=== PATIENT | female | born 1930 | race Caucasian/White ===

== ENCOUNTER → 2016-11-15 | Outpatient (CLI) | payer MEDICARE, OTHER ==
[~2016-11-15] MED LIST: ACET1TAB25 PO; ALLO300T74 PO; ASPI-914 PO; AZEL50GE2 TOP; CRAN400T4 PO; DICL112S2 PO; DIPH1TAB24 PO; GABA-218 PO; GUAI1TBM15 PO; HYDR-4180 PO; INSU100I14 SQ; INSU3INS3 SQ; ISOS60TA4 PO; LOSA100T44 PO; METF500T7 PO; METO-277 PO; MINO2.5T2 PO; NITR0.4T39 SL; NYST15PO3 TOP; PREN1TAB73 PO; [UNRECOGNIZED DRUG - CODE] PO
--- NOTE | 2016-11-15 16:31 | DI ---
Indication: ITS.REASON: PAIN IN LEFT LOWER LEG, VARICOSE VEINS WITH EDEMA PROCEDURE: US VENOUS DUPLEX, LOWER EXT LT: Encounter: Initial Comparison: None Technique: Color Doppler duplex and grayscale sonographic imaging of the left lower extremity was performed. Findings: There is no evidence for acute deep venous thrombosis in the left thigh. Specifically, serial graded compression was performed from the inguinal ligament to the popliteal bifurcation, on the left thigh, demonstrating appropriate compressibility of the deep venous system. In addition, color and pulsed Doppler demonstrate appropriate spontaneous flow, variation with respiration, and augmentation with calf compression. At the ankle, normal flow is identified in the posterior tibial veins; these vessels are also normal in caliber. Impression: No evidence of acute DVT in the left lower limb. .
== END ==
LOC: IMA 15:50
PROVIDERS: ATTEND Internal Medicine
DX: M79.662 Pain in left lower leg (principal); I83.892 Varicose veins of left lower extremity with other complications

== ENCOUNTER 2017-09-07 16:41 | Inpatient (IN) ==
[2017-09-07] MEDS ORDERED: NS 1,000 ML IV ONE (16:57)
--- NOTE | 2017-09-07 17:01 | Emergency Department Report ---
Chest Pain HPI - General Chief Complaint: Chest Pain Stated Complaint: CP and nausea post heart cath Time Seen by Provider: 09/07/17 16:45 Source: patient, RN notes reviewed, old records reviewed Mode of arrival: ambulatory Limitations: no limitations - History of Present Illness HPI narrative: 87yo woman presents to the ER for evaluation of chest pain/pressure. Pt is s/p heart cath yesterday; has had chest pressure/discomfort since the procedure. Today, pts nausea has gotten worse throughout the day. Because sx were not improving, pt presented to the ER for further evaluation. MD complaint: chest pain Occurred At: other Onset (ago): hour(s) Duration: constant Onset: during rest Pain location: substernal Severity: similar to previous episodes Quality: heaviness Pain radiation: none Relieving factors: nothing Exacerbating factors: exertion Context: recent surgery Associated symptoms: nausea Aspirin Today: contraindicated (Taking plavix) Nitro Today: 0.4 mg x 1, provided by ED Treatments prior to arrival chest pain: none - Related Data On Oral Contraceptives: No Home Medications Medication Instructions Recorded Confirmed Insulin Glargine,Hum.rec.anlog 40 unit SQ HS #0 06/08/15 09/07/17 [Lantus Solostar] Insulin Lispro [Humalog Kwikpen 10 unit SQ WB #0 06/08/15 09/07/17 U-100] Insulin Lispro [Humalog Kwikpen 12 unit SQ WL #0 syringe 06/08/15 09/07/17 U-100] Insulin Lispro [Humalog Kwikpen 15 unit SQ WS #0 syringe 06/08/15 09/07/17 U-100] Aspirin [Low Dose Aspirin EC] 81 mg PO DAILY #0 08/08/16 09/07/17 Nitroglycerin 0.4 mg SL Q5MIN PRN #0 08/08/16 09/07/17 Metformin HCl [Metformin HCl ER] 500 mg PO BID #0 08/19/16 09/07/17 Nystatin [Nyamyc] 1 applicatio TOP DAILY PRN #0 08/19/16 09/07/17 Furosemide [Lasix] 20 mg PO DAILY 09/06/17 09/07/17 Potassium Chloride [Klor-Con 10] 10 meq PO DAILY 09/06/17 09/07/17 APAP/Codeine 300/30 (#3) [Tylenol 1 tab PO Q6H PRN 09/07/17 09/07/17 with Codeine #3 (300/30)] Allopurinol [Zyloprim] 300 mg PO DAILY 09/07/17 09/07/17 Cranberry 1 tab PO BID 09/07/17 09/07/17 Diphenoxylate HCl/Atropine 1 tab PO Q6H PRN 09/07/17 09/07/17 [Lomotil 2.5-0.025 mg Tablet] Gabapentin [Neurontin] 200 mg PO HS 09/07/17 09/07/17 Guaifenesin/Dextromethorphan 1 tab PO BID 09/07/17 09/07/17 [Mucinex Dm ER 1,200-60 mg Tab] Isosorbide Mononitrate ER [Imdur] 30 mg PO BID 09/07/17 09/07/17 Losartan [Cozaar] 50 mg PO BID 09/07/17 09/07/17 Metoprolol Succinate [Metoprolol 50 mg PO BID 09/07/17 09/07/17 Succinate] Previous Rx's Medication Instructions Recorded Atorvastatin [Lipitor] 20 mg PO HS 1 Days #30 tab 09/07/17 Clopidogrel [Plavix] 75 mg PO DAILY #30 tab 09/07/17 Allergies Allergy/AdvReac Type Severity Reaction Status Date / Time Penicillins Allergy Unknown Verified 09/07/17 17:15 Review of Systems All systems: reviewed and negative except as stated Cardiovascular: Reports: as per HPI, chest pain, dyspnea on exertion. 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 Sepsis Yes: 2016 Depression Yes - Social History Smoking status: Never smoker Physical Exam - Limitations Limitations: no limitations - General General appearance: alert, in no apparent distress, obese - Normal Exams: Head:: Normocephalic without trauma Eyes:: Pupils are PERRLA w/ EOMI, No scleral icterus, irritation, or foreign bodies noted ENMT:: No facial trauma, nasal exudates, pharyngeal erythema, or exudates are noted Neck:: Full range of motion, without adenopathy Chest/Respirations:: Clear all martinez, with good airflow, and symmetry bilaterally Cardiovascular:: Regular rate and rhythm, without murmur or gallop, Pulses 2+ all extremities, capillary refill, <2 seconds all extremities Lymphatic:: No lymphadenopathy Musculoskeletal:: No tenderness, or deformity noted Integumentary:: No rashes, hives Neurological:: Patient is alert, and oriented Psychiatric:: Patient exhibits, appropriate attention - Extremities Exam Extremities exam: Present: normal inspection, full ROM, normal capillary refill , other (Bruising over pts right radial artery (cath insertion site)). Absent: tenderness, pedal edema Course - Consultations Consultation #1: Dr. Kemp: Troponin is too high for expected post-op course. Recommend admission to cardiology service and give lovenox. Time: 17:59 Vital Signs Temperature 98.7 F 09/07/17 16:44 Pulse Rate 62 09/07/17 16:44 Respiratory Rate 18 09/07/17 16:44 Blood Pressure 181/78 H 09/07/17 16:44 Pulse Oximetry 94 09/07/17 16:44 Temperature 98.7 F 09/07/17 16:44 Pulse Rate 62 09/07/17 16:44 Respiratory Rate 18 09/07/17 16:44 Blood Pressure 181/78 H 09/07/17 16:44 Pulse Oximetry 94 09/07/17 16:44 Chest Pain - MDM Narrative Medical decision making narrative: Pt with elevated troponin - too high for expected after cath. 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 Pt voiced understanding of dx, prognosis, tx, and f/u need. - Differential Diagnosis Likely: pneumothorax, stable angina, unstable angina pectoris, atypical chest pain, st elevation myocardial infarction, costochondritis, chest pain, biliary colic - Medical Records Data Attestation: I reviewed the patient's medical records. - Lab Data Attestation: I reviewed the patient's lab results. Result diagrams: 09/07/17 17:11 09/07/17 17:11 Lab Results 09/07/17 09/07/17 Range/Units 17:11 17:11 WBC 7.1 (4.5-11.0) T/MM3 RBC 4.32 (4.00-5.20) M/MM3 Hgb 13.0 (12-16) GM/DL Hct 40.8 (36-46) % MCV 94.4 (80-100) UM3 MCH 30.1 (26-34) UUG MCHC 31.9 (31-37) GM/DL RDW Std Deviation 50.6 H (36.9-50.2) FL Plt Count 207 (130-400) T/MM3 MPV 8.8 L (9.4-12.4) UM3 Immature Gran % (Auto) 0.1 (0.0-0.5) % Neut % (Auto) 68.0 H (33-66) % Lymph % (Auto) 23.5 (23-45) % [place] % (Auto) 6.9 (0-9.0) % Eos % (Auto) 1.4 (0-4) % Baso % (Auto) 0.1 (0-2) % Neut # (Auto) 4.8 (1.8-7.7) T/MM3 Lymph # (Auto) 1.7 (1-4.8) T/MM3 [place] # (Auto) 0.5 (0-0.8) T/MM3 Eos # (Auto) 0.1 (0-0.5) T/MM3 Baso # (Auto) 0.0 (0-0.2) T/MM3 Abs Immat Gran (auto) 0.01 (0.00-0.03) T/MM3 Turbidity < 20 (0-20) Sodium 140 (134-144) MEQ/L Potassium 4.6 (3.6-5) MEQ/L Chloride 105 (98-107) MEQ/L Carbon Dioxide 26 (22-30) MEQ/L Anion Gap 9 (5-15) MEQ/L BUN 22.0 H (7-17) MG/DL Creatinine 1.2 (0.7-1.2) MG/DL GFR Calculation 43 BUN/Creatinine Ratio 18 (6-26) RATIO Glucose 101 (65-110) MG/DL Calculated Osmolality 272 (261-280) MOSM/KG Calcium 9.3 (8.4-10.2) MG/DL Icterus Index < 2 (0-7) Troponin I 12.600 H (0-0.12) ng/ml B-Natriuretic Peptide 2550 H (0-175) pg/mL Specimen Hemolysis < 15 (0-25) - Radiology Data Attestation: I reviewed the patient's radiology results. Disposition Clinical Impression: Elevated troponin I level Chest pain Qualifiers: Chest pain type: unspecified Qualified Code(s): R07.9 - Chest pain, unspecified Disposition: OBS [facility] [place] Language: [place] Prescriptions: No Action Insulin Glargine,Hum.rec.anlog [Lantus Solostar] 40 unit SQ HS #0 Insulin Lispro [Humalog Kwikpen U-100] 15 unit SQ WS #0 syringe Insulin Lispro [Humalog Kwikpen U-100] 12 unit SQ WL #0 syringe Potassium Chloride [Klor-Con 10] 10 meq PO DAILY Clopidogrel [Plavix] 75 mg PO DAILY #30 tab Cranberry 1 tab PO BID Guaifenesin/Dextromethorphan [Mucinex Dm ER 1,200-60 mg Tab] 1 tab PO BID Isosorbide Mononitrate ER [Imdur] 30 mg PO BID Losartan [Cozaar] 50 mg PO BID Metoprolol Succinate [Metoprolol Succinate] 50 mg PO BID APAP/Codeine 300/30 (#3) [Tylenol with Codeine #3 (300/30)] 1 tab PO Q6H PRN PRN Reason: Pain Allopurinol [Zyloprim] 300 mg PO DAILY Insulin Lispro [Humalog Kwikpen U-100] 10 unit SQ WB #0 Nitroglycerin 0.4 mg SL Q5MIN PRN #0 PRN Reason: CHEST PAIN Aspirin [Low Dose Aspirin EC] 81 mg PO DAILY #0 Metformin HCl [Metformin HCl ER] 500 mg PO BID #0 Nystatin [Nyamyc] 1 applicatio TOP DAILY PRN #0 PRN Reason: PRN ORDERS Furosemide [Lasix] 20 mg PO DAILY Atorvastatin [Lipitor] 20 mg PO HS 1 Days #30 tab Diphenoxylate HCl/Atropine [Lomotil 2.5-0.025 mg Tablet] 1 tab PO Q6H PRN PRN Reason: Prn Orders Gabapentin [Neurontin] 200 mg PO HS Referrals: Waldo Hodge DO [Family Provider] - Time of Disposition: 18:09 - Seen By: physician
[2017-09-07] MEDS: NITROGLYCERIN 0.4 MG SUBLINGUAL TABLET SL PRN ×3 (17:07→17:14)
[2017-09-07] MEDS: SALINE FLUSH 10ml SYRINGE IVF PRN (17:07)
[2017-09-07] MEDS ORDERED: ENOXAPARIN 100 MG/ML INJECTION SQ ONE (18:19)
[2017-09-07] MEDS ORDERED: ONDANSETRON 4 MG/2 ML INJECTION IVP PRN (19:35)
[2017-09-07 19:44] VITALS: BMI 39.4
[2017-09-07] MEDS ORDERED: HYDRALAZINE 20 MG/ML INJECTION IVP PRN (20:05)
[2017-09-07] MEDS ORDERED: DIPHENOXYLATE PO PRN (20:25)
[2017-09-07] MEDS ORDERED: ATROPINE PO PRN (20:25)
[2017-09-07] MEDS ORDERED: NITROGLYCERIN 0.4 MG SUBLINGUAL TABLET SL PRN (20:25)
[2017-09-07] MEDS ORDERED: APAP/CODEINE 300 MG/30 MG TABLET PO PRN (20:25)
[2017-09-07] MEDS ORDERED: LOSARTAN 100 MG TABLET PO SCH (21:00)
[2017-09-07] MEDS ORDERED: ISOSORBIDE MONONITRATE ER 60 MG TABLET PO SCH (21:00)
[2017-09-07] MEDS: ATORVASTATIN 20 MG TABLET PO SCH (21:10)
[2017-09-07] MEDS: METOPROLOL SUCCINATE 50 MG PO SCH (21:11)
[2017-09-07] MEDS: GABAPENTIN 100 MG CAPSULE PO SCH (21:11)
[2017-09-07] MEDS: INSULIN GLARGINE 100unit/ml INJECTION SQ SCH (21:30)
[2017-09-08] MEDS: GUAIFENESIN/D-METHORPHAN 600mg/30mg TABLET PO SCH ×3 (06:52→20:09)
[2017-09-08] MEDS ORDERED: POTASSIUM CHLORIDE 10 MEQ PO SCH (08:00)
--- NOTE | 2017-09-08 08:10 | XRay Report ---
Indication: CP s/p cath Procedure: XR chest 1V: Encounter: Initial Comparison: None Technique: A single portable AP chest radiograph was obtained. Findings: Evaluation limited by underpenetration of the radiograph. Lungs and airways: Normal lung volumes. No focal airspace consolidation. Normal pulmonary vasculature. Pleura: No pleural effusion or pneumothorax. Heart and mediastinum: The cardiomediastinal silhouette and great vessels are within normal limits. Osseous structures and soft tissues: No acute osseous abnormality is seen. Degenerative changes of the shoulders and thoracic spine. Impression: No acute cardiopulmonary process appreciated. .
[2017-09-08] MEDS: INSULIN ASPART 100unit/ml INJECTION SQ SCH ×2 (08:41→11:38)
[2017-09-08] MEDS: CLOPIDOGREL 75 MG TABLET PO SCH ×2 (08:41→11:36)
[2017-09-08] MEDS: ASPIRIN *EC* 81 MG TABLET PO SCH ×2 (08:41→11:36)
[2017-09-08] MEDS: FUROSEMIDE 20 MG TABLET PO SCH (08:41)
[2017-09-08] MEDS: ALLOPURINOL 300 MG TABLET PO SCH (08:47)
[2017-09-08] MEDS: METOPROLOL SUCCINATE 50 MG PO SCH ×2 (08:47→21:39)
[2017-09-08] MEDS: LOSARTAN 100 MG TABLET PO SCH ×2 (08:57→20:04)
[2017-09-08] MEDS ORDERED: LOSARTAN 50 MG TABLET PO SCH (09:00)
[2017-09-08] MEDS ORDERED: ISOSORBIDE MONONITRATE ER 30 MG TABLET PO SCH (09:00)
[2017-09-08] MEDS ORDERED: ISOSORBIDE MONONITRATE 60 MG PO SCH (09:00)
--- NOTE | 2017-09-08 10:45 | Cardiology History & Physical ---
History of Present Illness Chief complaint: chest pressure HPI: Megan is an 87 year old female with a history of HTN, DM and HTN who had recent abnormal stress test who was admitted on Monday for left heart cath and she had successful PTCA of diagonal artery who presented to the ER for evaluation of chest pain/pressure. She reportedly has had chest pressure/ discomfort since the procedure. Her nausea has gotten worse throughout the day and due to symptoms not improving she presented to the ER for further evaluation. She was found to have an elevated troponin, indicating NSTEMI. She was admitted to Dr. Kemp for further evaluation and treatment Review of Systems - Constitutional Constitutional: Absent: chills, fatigue, fever(s) - EENMT Eyes: Absent: change in vision Balance: Absent: vertigo Mouth/Throat: Absent: sore throat - Cardiovascular Cardiovascular: Present: chest pain. Absent: palpitations, syncope, dyspnea on exertion, orthopnea Vascular: Absent: pedal edema - Respiratory Respiratory: Present: dyspnea on exertion. Absent: cough, dyspnea - Gastrointestinal Gastrointestinal: Present: nausea. 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 Cholecystectomy. Cataract extraction. Tonsillectomy. Appendectomy - Social History Smoking status: Never smoker Substance use type: does not use Alcohol intake frequency: does not drink Housing: house Household members: none Current occupational status: retired Current residence: Apartment/Private Home Medications Home Medications Medication Instructions Recorded Confirmed Type Insulin Glargine,Hum.rec.anlog 40 unit SQ HS #0 06/08/15 09/07/17 History [Lantus Solostar] Insulin Lispro [Humalog Kwikpen 10 unit SQ WB #0 06/08/15 09/07/17 History U-100] Insulin Lispro [Humalog Kwikpen 12 unit SQ WL #0 syringe 06/08/15 09/07/17 History U-100] Insulin Lispro [Humalog Kwikpen 15 unit SQ WS #0 syringe 06/08/15 09/07/17 History U-100] Aspirin [Low Dose Aspirin EC] 81 mg PO DAILY #0 08/08/16 09/07/17 History Nitroglycerin 0.4 mg SL Q5MIN PRN #0 08/08/16 09/07/17 History Nystatin [Nyamyc] 1 applicatio TOP DAILY PRN #0 08/19/16 09/07/17 History Furosemide [Lasix] 20 mg PO DAILY 09/06/17 09/07/17 History Potassium Chloride [Klor-Con 10] 10 meq PO DAILY 09/06/17 09/07/17 History APAP/Codeine 300/30 (#3) [Tylenol 1 tab PO Q6H PRN 09/07/17 09/07/17 History with Codeine #3 (300/30)] Allopurinol [Zyloprim] 300 mg PO DAILY 09/07/17 09/07/17 History Cranberry 1 tab PO BID 09/07/17 09/07/17 History Diphenoxylate HCl/Atropine 1 tab PO Q6H PRN 09/07/17 09/07/17 History [Lomotil 2.5-0.025 mg Tablet] Gabapentin [Neurontin] 200 mg PO HS 09/07/17 09/07/17 History Guaifenesin/Dextromethorphan 1 tab PO BID 09/07/17 09/07/17 History [Mucinex Dm ER 1,200-60 mg Tab] Isosorbide Mononitrate ER [Imdur] 30 mg PO BID 09/07/17 09/07/17 History Losartan [Cozaar] 50 mg PO BID 09/07/17 09/07/17 History Metoprolol Succinate 50 mg PO BID 09/07/17 09/07/17 History Allergies Allergy/AdvReac Type Severity Reaction Status Date / Time Penicillins Allergy Unknown Verified 09/07/17 17:15 Exam Vital signs: Temperature 96.1 F L 09/08/17 08:00 Pulse Rate 62 09/08/17 09:00 Respiratory Rate 37 H 09/08/17 09:00 Blood Pressure 171/83 H 09/08/17 09:00 Pulse Oximetry 96 09/08/17 09:00 - Constitutional no acute distress, well nourished, cooperative - Routine HEENT Exam Head: Present: normocephalic ENT: Present: mucous membranes moist - Routine Neck Exam Absent: JVD, carotid bruit - Routine Chest/Breast/Axilla Exam Chest wall: Absent: tenderness - Routine Respiratory Exam Present: CTA bilaterally. Absent: rales, wheezes - Routine Cardiovascular Exam Present: RRR, no murmur - Routine Abdominal Exam Present: soft, normoactive bowel sounds - Routine Extremities Exam Present: no edema - Routine Skin Exam Present: intact, dry, warm - Routine Neurological Exam Present: alert, oriented X3 - Routine Psychiatric Exam Present: normal affect, normal thought process Results 09/09/17 05:00 09/09/17 05:00 Cardiac Enzymes 09/07/17 09/08/17 Range/Units 23:16 04:34 Troponin I 10.300 H 9.650 H (0-0.12) ng/ml CBC 09/08/17 Range/Units 04:34 WBC 5.9 (4.5-11.0) T/MM3 RBC 3.97 L (4.00-5.20) M/MM3 Hgb 12.0 (12-16) GM/DL Hct 37.7 (36-46) % Plt Count 176 (130-400) T/MM3 Comprehensive Metabolic Panel 09/08/17 Range/Units 04:34 Sodium 139 (134-144) MEQ/L Potassium 4.3 (3.6-5) MEQ/L Chloride 108 H (98-107) MEQ/L Carbon Dioxide 26 (22-30) MEQ/L BUN 20.0 H (7-17) MG/DL Creatinine 1.2 (0.7-1.2) MG/DL Glucose 99 (65-110) MG/DL Calcium 8.8 (8.4-10.2) MG/DL Intake and Output 09/07/17 09/08/17 09/08/17 22:59 06:59 14:59 Intake Total 100 / 100 240 / 240 Output Total 250 / 250 250 / 250 350 / 350 Balance -150 / -150 -10 / -10 -350 / -350 Intake: Oral 100 / 100 240 / 240 Output: Urine 250 / 250 250 / 250 350 / 350 Other: Urine Appearance Cloudy Cloudy Cloudy Urine Color Yellow Yellow Yellow Urine Odor Normal Normal # Voids 1 Weight 215 lb 9.793 oz 214 lb 1.102 oz Patient Weight 09/09/17 06:59 Weight 214 lb 1.102 oz - Imaging and Cardiology Imaging & Cardiology Narrative: Date of Exam: 09/07/17 Ordering Provider: Luis Rodriguez DO Type of Exam(s): XR chest 1V Reason for Exam(s): CP s/p cath Indication: CP s/p cath Procedure: XR chest 1V: Encounter: Initial Comparison: None Technique: A single portable AP chest radiograph was obtained. Findings: Evaluation limited by underpenetration of the radiograph. Lungs and airways: Normal lung volumes. No focal airspace consolidation. Normal pulmonary vasculature. Pleura: No pleural effusion or pneumothorax. Heart and mediastinum: The cardiomediastinal silhouette and great vessels are within normal limits. Osseous structures and soft tissues: No acute osseous abnormality is seen. Degenerative changes of the shoulders and thoracic spine. Impression: No acute cardiopulmonary process appreciated. 09/08/17 11:51 EKG interpretations - EKG EKG results cardiology: sinus rhythm - Blocks, axis, hypertrophy, ST abn Repolarization changes or abnormalities: ST or T wave suggestive of ischemia - WI, pacemaker, normal Myocardial infarction: septal WI (acute or recent) Hospital Course This is a general summary of the patient's hospital course. For more details refer to the complete medical record. Time spent with patient: 25 - 35 minutes Resuscitation Status: Full Code Assessment and Plan - Attestation Attestation Narrative: 09/13/17 11:27 Recommendation After examining the patient I agree with the above assessment. I am involved in the formulation of the patient's plan of care. - Assessment and Plan (1) STEMI (ST elevation myocardial infarction) Status: Acute Chest pressure, S/P PTCA of diagonal artery. - Troponin 1)12.600, 2)10.300, 3)9.650 4)7.820 - EKG with ST elevation in lead I and II. - NPO for repeat [facility] today (2) Atherosclerotic heart disease of [place] coronary artery without angina pectoris Status: Chronic Recent PTCA to diagonal - Continue aspirin and Plavix (3) Essential (primary) hypertension Status: Chronic Continue Metoprolol Succinate 50mg BID - Continue Losartan 50mg BID - Continue Isosorbide dinitrate 30mg BID (4) Mixed hyperlipidemia Status: Acute (5) Type 2 diabetes mellitus without complications Status: Acute
[2017-09-08] MEDS ORDERED: HEPARIN 1,000 UNITS/500 ML PREMIX (*CVL ONLY*) IV ONE (12:01)
[2017-09-08] MEDS ORDERED: LIDOCAINE 1% (10mg/ml) 30ml SDV INJ ONE (12:02)
[2017-09-08] MEDS: SULFAMETHOXAZOLE/TMP 800 MG/160 MG DS TABLET PO SCH ×2 (13:06→21:39)
[2017-09-08] MEDS ORDERED: NS 1,000 ML IV SCH (14:30)
[2017-09-08] MEDS ORDERED: FentaNYL 100 MCG/2 ML INJECTION ONE (14:43)
[2017-09-08] MEDS ORDERED: HEPARIN 1,000unit/ml INJECTION 10ml ONE (14:44)
[2017-09-08] MEDS ORDERED: MIDAZOLAM 2mg/2ml INJECTION ONE (14:44)
[2017-09-08] MEDS ORDERED: IOHEXOL 350mg/ml 200ml BOTTLE ONE (14:45)
[2017-09-08] MEDS ORDERED: NITROGLYCERIN 0.4 MG SUBLINGUAL TABLET SL PRN (15:49)
[2017-09-08] MEDS ORDERED: LORazepam 0.5 MG TABLET PO PRN (15:49)
[2017-09-08] MEDS ORDERED: ONDANSETRON 4 MG/2 ML INJECTION IVP PRN (15:49)
[2017-09-08] MEDS ORDERED: MORPHINE SULFATE 4mg INJECTION IVP PRN ×2 (15:49)
[2017-09-08] MEDS ORDERED: ATROPINE 1 MG/ML INJECTION IVP PRN (15:49)
[2017-09-08] MEDS ORDERED: HYDROCODONE/APAP 7.5 MG/325 MG TABLET PO PRN (15:49)
[2017-09-08] MEDS ORDERED: PROMETHAZINE 25 MG INJECTION IVP PRN (15:49)
[2017-09-08] MEDS ORDERED: ACETAMINOPHEN 325 MG TABLET PO PRN (15:49)
[2017-09-08] MEDS ORDERED: BISACODYL 10 MG SUPPOSITORY RECTALLY PRN (15:49)
[2017-09-08] MEDS ORDERED: MAG-AL + SIM ORAL LIQUID 30ml PO PRN (15:49)
[2017-09-08] MEDS ORDERED: Bisacodyl EC TAB 5 MG TABLET PO PRN (15:49)
[2017-09-08] MEDS ORDERED: METOCLOPRAMIDE 10mg/2ml INJECTION IVP PRN (15:49)
[2017-09-08] MEDS ORDERED: INSULIN ASPART 100unit/ml INJECTION SQ SCH (17:30)
[2017-09-08] MEDS: ATORVASTATIN 20 MG TABLET PO SCH (20:02)
[2017-09-08] MEDS: GABAPENTIN 100 MG CAPSULE PO SCH (20:02)
[2017-09-08] MEDS: INSULIN GLARGINE 100unit/ml INJECTION SQ SCH (20:16)
[2017-09-09] MEDS ORDERED: ISOSORBIDE MONONITRATE ER 60 MG TABLET PO SCH (07:00)
[2017-09-09 07:12] VITALS: TEMP 97.6
[2017-09-09] MEDS: INSULIN ASPART 100unit/ml INJECTION SQ SCH ×2 (10:00→14:57)
[2017-09-09] MEDS: ASPIRIN *EC* 81 MG TABLET PO SCH (10:09)
[2017-09-09] MEDS: ALLOPURINOL 300 MG TABLET PO SCH (10:09)
[2017-09-09] MEDS: FUROSEMIDE 20 MG TABLET PO SCH (10:09)
[2017-09-09] MEDS: GUAIFENESIN/D-METHORPHAN 600mg/30mg TABLET PO SCH (10:10)
[2017-09-09] MEDS: SULFAMETHOXAZOLE/TMP 800 MG/160 MG DS TABLET PO SCH (10:10)
[2017-09-09] MEDS: CLOPIDOGREL 75 MG TABLET PO SCH (10:10)
[2017-09-09] MEDS: SALINE FLUSH 10ml SYRINGE IVF PRN (10:11)
[2017-09-09] MEDS: METOPROLOL SUCCINATE 50 MG PO SCH (10:56)
[2017-09-09] MEDS: ISOSORBIDE MONONITRATE ER 30 MG TABLET PO SCH ×2 (11:01→15:51)
--- NOTE | 2017-09-09 11:13 | Discharge Summary ---
<Estefany Conte - Last Filed: 09/09/17 12:17> Discharge Information Date of admission: 09/08/17 15:04 Attending Physician: Dinh Kemp MD Primary care physician: Waldo Hodge DO Consults: 09/08/17 15:49 Outpt Cardiac Rehab Consult [CONS] Routine - Discharge Diagnosis (1) Atherosclerotic heart disease of [place] coronary artery without angina pectoris Status: Chronic (2) Essential (primary) hypertension Status: Chronic (3) Mixed hyperlipidemia Status: Acute (4) Type 2 diabetes mellitus without complications Status: Acute (5) STEMI (ST elevation myocardial infarction) Status: Acute - Procedures Procedures: Cardiac cath with coronary stenting of Diagonal - Laboratory Labs: 09/09/17 05:00 09/09/17 05:00 History of Present Illness HPI: Megan is an 87 year old female with a history of HTN, DM and HTN who had recent abnormal stress test who was admitted on Monday for left heart cath and she had successful PTCA of diagonal artery who presented to the ER for evaluation of chest pain/pressure. She reportedly has had chest pressure/ discomfort since the procedure. Her nausea has gotten worse throughout the day and due to symptoms not improving she presented to the ER for further evaluation. She was found to have an elevated troponin, indicating NSTEMI. She was admitted to Dr. Kemp for further evaluation and treatment Hospital Course This is a general summary of the patient's hospital course. For more details refer to the complete medical record. Pt underwent a repeat cardiac cath and stenting of first diagonal. Chest pain was relieved post stent, denies re-occurrence since that time. She has remained chest pain and nausea free. Will send home on DAPT, plavix and ASA, imdur 30mg bid and other home medications. Time spent with patient: 25 - 35 minutes Resuscitation Status: Full Code Exam Vital signs: Temperature 97.6 F 09/09/17 07:12 Pulse Rate 50 L 09/09/17 08:00 Respiratory Rate 20 09/09/17 08:00 Blood Pressure 152/72 H 09/09/17 08:00 Pulse Oximetry 99 09/09/17 08:00 - Constitutional no acute distress - Routine HEENT Exam Head: Present: normocephalic, atraumatic Eye: Present: PERRL ENT: Present: mucous membranes moist - Routine Neck Exam Absent: JVD, carotid bruit - Routine Respiratory Exam Present: CTA bilaterally - Routine Cardiovascular Exam Present: RRR, no murmur, bradycardia. Absent: JVD - Routine Abdominal Exam Present: soft, normoactive bowel sounds, distended - Routine Extremities Exam Present: no edema - Routine Skin Exam Present: intact - Routine Neurological Exam Present: alert, oriented X3 - Routine Psychiatric Exam Present: normal affect, normal thought process Results 09/09/17 05:00 09/09/17 05:00 CBC 09/09/17 Range/Units 05:00 WBC 5.9 (4.5-11.0) T/MM3 RBC 3.90 L (4.00-5.20) M/MM3 Hgb 11.8 L (12-16) GM/DL Hct 37.1 (36-46) % Plt Count 171 (130-400) T/MM3 Neut # (Auto) 3.6 (1.8-7.7) T/MM3 Lymph # (Auto) 1.7 (1-4.8) T/MM3 [place] # (Auto) 0.5 (0-0.8) T/MM3 Eos # (Auto) 0.2 (0-0.5) T/MM3 Baso # (Auto) 0.0 (0-0.2) T/MM3 Comprehensive Metabolic Panel 09/09/17 Range/Units 05:00 Sodium 141 (134-144) MEQ/L Potassium 4.7 (3.6-5) MEQ/L Chloride 109 H (98-107) MEQ/L Carbon Dioxide 26 (22-30) MEQ/L BUN 18.0 H (7-17) MG/DL Creatinine 1.2 (0.7-1.2) MG/DL Glucose 88 (65-110) MG/DL Calcium 8.4 (8.4-10.2) MG/DL Intake and Output 09/08/17 09/09/17 09/09/17 22:59 06:59 14:59 Intake Total 548.75 / 548.75 451.25 / 451.25 120 / 120 Output Total 150 / 150 400 / 400 Balance 398.75 / 398.75 51.25 / 51.25 120 / 120 Intake: IV 548.75 / 548.75 451.25 / 451.25 Ns 1,000 ml @ 75 mls/hr IV . 548.75 / 548.75 451.25 / 451.25 [id number] [facility] Rx#:[id number] Oral 120 / 120 Output: Urine 150 / 150 400 / 400 Other: Urine Appearance Cloudy Clear Urine Color Yellow Dark Yellow Urine Odor Strong # Voids 1 1 Weight 97.2 kg Patient Weight 09/10/17 06:59 Weight 97.2 kg Discharge Plan - Med Rec/Dispo [place] [facility] [place], Myocardial Infarction ([place]) Prescriptions: New Nitroglycerin [Nitrostat] 0.4 mg SL Q5MIN3 PRN tab PRN Reason: Angina Continue Insulin Glargine,Hum.rec.anlog [Lantus Solostar] 40 unit SQ HS #0 Insulin Lispro [Humalog Kwikpen U-100] 15 unit SQ WS #0 syringe Insulin Lispro [Humalog Kwikpen U-100] 12 unit SQ WL #0 syringe Potassium Chloride [Klor-Con 10] 10 meq PO DAILY Clopidogrel [Plavix] 75 mg PO DAILY #30 tab Cranberry 1 tab PO BID Guaifenesin/Dextromethorphan [Mucinex Dm ER 1,200-60 mg Tab] 1 tab PO BID Isosorbide Mononitrate ER [Imdur] 30 mg PO BID Losartan [Cozaar] 50 mg PO BID Metoprolol Succinate 50 mg PO BID APAP/Codeine 300/30 (#3) [Tylenol with Codeine #3 (300/30)] 1 tab PO Q6H PRN PRN Reason: Pain Allopurinol [Zyloprim] 300 mg PO DAILY Metformin HCl [Metformin HCl ER] 500 mg PO BID #0 Insulin Lispro [Humalog Kwikpen U-100] 10 unit SQ WB #0 Aspirin [Low Dose Aspirin EC] 81 mg PO DAILY #0 Nystatin [Nyamyc] 1 applicatio TOP DAILY PRN #0 PRN Reason: PRN ORDERS Furosemide [Lasix] 20 mg PO DAILY Atorvastatin [Lipitor] 20 mg PO HS 1 Days #30 tab Gabapentin [Neurontin] 200 mg PO HS No Action Nitroglycerin 0.4 mg SL Q5MIN PRN #0 PRN Reason: CHEST PAIN Diphenoxylate HCl/Atropine [Lomotil 2.5-0.025 mg Tablet] 1 tab PO Q6H PRN PRN Reason: Prn Orders - Disposition 01 Discharged Home, Self-Care <Dinh Kemp - Last Filed: 09/13/17 11:22> Discharge Information Date of admission: 09/08/17 15:04 Attending Physician: Dinh Kemp MD Primary care physician: Waldo Hodge DO Consults: 09/08/17 15:49 Outpt Cardiac Rehab Consult [CONS] Routine - Discharge Diagnosis (1) Atherosclerotic heart disease of [place] coronary artery without angina pectoris Status: Chronic (2) Essential (primary) hypertension Status: Chronic (3) Mixed hyperlipidemia Status: Acute (4) Type 2 diabetes mellitus without complications Status: Acute (5) STEMI (ST elevation myocardial infarction) Status: Acute - Laboratory Labs: 09/09/17 05:00 09/09/17 05:00 Hospital Course This is a general summary of the patient's hospital course. For more details refer to the complete medical record. Exam Vital signs: Temperature 97.6 F 09/09/17 07:12 Pulse Rate 55 L 09/09/17 11:00 Respiratory Rate 34 H 09/09/17 11:00 Blood Pressure 167/87 H 09/09/17 11:00 Pulse Oximetry 98 09/09/17 11:00 Results 09/09/17 05:00 09/09/17 05:00 Attestation Narriative - Attestation Attestation Narrative: 09/13/17 11:22 Recommendation After examining the patient I agree with the above assessment. I am involved in the formulation of the patient's plan of care.
--- NOTE | 2017-09-09 13:28 | Cardiac Catheterization Report ---
DATE OF PROCEDURE September 08, 2017. The patient is a pleasant 87-year-old lady with coronary artery disease who had percutaneous intervention of the diagonal artery recently who was admitted with acute myocardial infarction and was referred for further evaluation by cardiac catheterization and possible intervention. Informed consent was obtained after explaining the procedure and the potential risks to the patient and family who agreed to proceed with the procedure. PROCEDURE 1. Left coronary artery angiography. 2. Primary stent of the diagonal artery using a 2.75 x 22 drug-eluting Resolute [place] stent. 3. Right femoral angiography to visualize the vessel for closure device. 4. Successful Mynx deployment for hemostasis. TECHNIQUE She was prepped and draped in the usual sterile techniques. Conscious sedation was performed using Versed and fentanyl. 1% lidocaine was used for local anesthesia. Using modified Seldinger technique, arterial access was obtained into the right femoral artery with placement of a 6-[place] arterial sheath. The patient was already on dual antiplatelet therapy. 7000 units of heparin were administered prior to intervention. CORONARY ANGIOGRAPHY Left main was free of significant lesions. Left anterior descending artery had about 40% stenosis after the origin of the first diagonal. First diagonal was subtotally occluded at the ostium with thrombus present. Left circumflex artery had diffuse disease of up to about 40%. After reviewing the images we decided to proceed with intervention on diagonal artery. A 6-[place] EBU 3.75 was advanced to the ostium of left main. A Whisper wire was used to cross the lesion into distal diagonal. A Runthrough wire was used to cross the lesion into distal LAD to protect LAD. A 2.75 x 22 drug-eluting Resolute [place] stent was delivered to the lesion site where it was deployed by inflating the balloon to 14 atmospheres. The next angiogram showed excellent results with no residual stenosis. Right femoral angiography showed patent common femoral, proximal SFA and profunda and therefore Mynx was used for hemostasis. IMPRESSION 1. Coronary artery disease as described above with subtotal occlusion of the diagonal artery with thrombus present. 2. Successful primary stent of the diagonal artery using a 2.75 x 22 drug- eluting Resolute [place] stent. . 3. Successful Mynx deployment for hemostasis. PLAN Will keep her on dual antiplatelet therapy at least for year and continue risk modification. MELITA
[2017-09-09 14:57] VITALS: BP 167/87; PULSE 55; RESP 34; O2SAT 98
[2017-09-09] MEDS ORDERED: CLOPIDOGREL 75 MG TABLET PO SCH (15:29)
[2017-09-09] MEDS ORDERED: LOSARTAN 50 MG TABLET PO SCH (21:00)
== END 2017-09-09 13:20 | disposition home or self-care (01) | DRG 247 ==
LOC: ED 16:41 → CCU 16:41
PROVIDERS: ADMIT Internal Medicine Cardiovascular Disease; ATTEND Internal Medicine Cardiovascular Disease